=== PATIENT | female | born 1950 | race Caucasian/White ===

== ENCOUNTER 2021-11-08 10:13 | Emergency (ER) | payer MEDICARE ==
[~2021-11-08] VITALS: Ht 172.7 cm; Wt 99.8 kg
[2021-11-08 10:20] VITALS: BP 138/82
[2021-11-08] MEDS ORDERED: ACET-10509 PO (11:14)
== END 2021-11-08 11:36 | disposition home or self-care (01) ==
LOC: MED 10:13
DX: S93.401A Sprain of unspecified ligament of right ankle, initial encounter (principal); Z79.899 Other long term (current) drug therapy; W01.0XXA Fall on same level from slipping, tripping and stumbling without subsequent striking against object, initial encounter; Y93.89 Activity, other specified; Y92.89 Other specified places as the place of occurrence of the external cause; Y99.8 Other external cause status
CPT/HCPCS: 73610; 99283